=== PATIENT | male | born 1990 | race Caucasian/White ===

== ENCOUNTER 2023-12-20 19:14 | Observation (INO) | payer OTHER, SELFPAY ==
[2023-12-20] VITALS (23 sets, daily range): BP systolic 90–140; BP diastolic 0–80; PULSE 85–159; RESP 10–46; TEMP 36.3–36.7; O2SAT 93–99; BMI 50.7; BMI 51.4
--- NOTE | 2023-12-20 19:23 | ECG_ITS ---
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
--- NOTE | 2023-12-20 19:26 | ED.GENADUL1 ---
Documented by User: CALIXTO Gomez 12/20/23 22:01 HPI - General Adult General Chief complaint: Shortness of Breath/Dyspnea Stated complaint: SORE THROAT Time Seen by Provider: 12/20/23 19:16 Mode of arrival: walk-in History of Present Illness HPI narrative: Patient is a 33-year-old male who presents to the ER with concerns of persistent shortness of breath cough and sore throat. Patient states he was seen 2 weeks ago and diagnosed with influenza B, states his breathing symptoms have not improved despite Tessalon Perles, recent steroid from his family doctor finishing today and nebulizers every 6 hours. Patient notes some shortness of breath with exertion, cough somewhat productive. mild Body aches I think i am over the flu part. Pt denies abdominal pain. pt also notes poor dentition. i think I am getting tooth infection. Onset (ago): week(s) (2) Severity: moderate Quality: Reports aching Pain Consistency: Reports constant Treatments prior to arrival: Reports other (steroids and breathinig tx) Related Data Allergies Allergy/AdvReac Type Severity Reaction Status Date / Time No Known Drug Allergies Allergy Verified 12/20/23 19:24 Review of Systems ROS Constitutional Reports: fever (last week); Denies: chills Eyes Denies: change in vision Ears, nose, mouth, and throat Reports: throat pain, hoarseness and nasal congestion; Denies: neck pain, throat swelling or difficulty swallowing Cardiovascular Denies: chest pain Respiratory Reports: shortness of breath, cough and wheezing Gastrointestinal Denies: abdominal pain, nausea or vomiting Musculoskeletal Denies: back pain or neck pain Integumentary/Breast Denies: rash Neurological Denies: headache Psychiatric Denies: anxiety Exam Narrative Exam Narrative: Nurses notes and vital signs reviewed and patient is not hypoxic. General: The patient appears ill, SOB, diaphoretic on the brow Skin: Warm, dry extremities, no pallor noted.No evidence of rash Head: Normocephalic, atraumatic Neck: Supple, trachea mid-line, no tenderness, no lymphadenopathy Eye: Pupils are equal, round and reactive to light, EOMI Ears, Nose, Mouth, and Throat: TM are clear, normal light reflex, oral mucosa is moist,Poor dentition, no focal abscess but multiple broken teeth noted. Multiple dental caries. no posterior oropharynx erythema or hypertrophy, uvula is mid-line, Positive postnasal drainage noted Cardiovascular: tachycardia, no prominent murmur. no extermity edema Respiratory: Patient is in no distress, no accessory muscle use, lungs with exp wheezing, + rhonchi bases. Chest Wall: no tenderness Back: non-tender, no CVA tenderness Musculoskeletal: normal ROM, no tenderness, no swelling GI: Normal bowel sounds, no tenderness to palpation, no masses appreciated. No rebound, guarding, or rigidity noted. Neurological: A&O x4 Psychiatric: Cooperative Constitutional Vital Signs, click to edit/add: Last Vital Signs Temp 98.1 F 12/20/23 20:35 Pulse 159 H 12/20/23 21:44 Resp 28 H 12/20/23 21:44 BP 104/0 L 12/20/23 21:52 Pulse Ox 96 12/20/23 21:44 O2 Del Method Room Air 12/20/23 20:11 Course Vital Signs Vital signs: Vital Signs Temperature 98.0 F 12/20/23 19:19 Pulse Rate 142 H 12/20/23 19:19 Respiratory Rate 22 12/20/23 19:19 Blood Pressure 100/65 12/20/23 19:19 Pulse Oximetry 99 12/20/23 19:19 Oxygen Delivery Method Room Air 12/20/23 19:19 Temperature 98.1 F 12/20/23 20:35 Pulse Rate 159 H 12/20/23 21:44 Respiratory Rate 28 H 12/20/23 21:44 Blood Pressure 104/0 L 12/20/23 21:52 Pulse Oximetry 96 12/20/23 21:44 Oxygen Delivery Method Room Air 12/20/23 20:11 Medical Decision Making [facility] Narrative Medical decision making narrative: Patient presents with persistent shortness of breath, wheezing and a cough x 2 weeks, initially diagnosed with influenza B. Significantly tachycardic, IV FLUID bolus Patient's blood pressure noted to be mid 90s over Doppler, patient heart rate continues to be 150. His breathing appears improved but patient notes he still feels shortness of breath, his D-dimer test was within normal limits, patient had a second IV fluid bolus ordered, patient be given Solu-Medrol 125 mg IV and magnesium 2 g IV over 15 minutes. Patient reports a longstanding history of asthma, treated by Dr. Kilgore. Preliminary chest x-ray concerning for pneumonia and patient will be given Rocephin 1 g IV. 2 L IV fluid bolus, his heart rate was observed to fluctuate between 150 and 120, blood pressure 104 systolic over Doppler, possible atrial flutter noted on monitor. Discussed concern with no change in HR/ hypotension. Dr. Quintero at bedside with 10mg cardizem- improved rate and Atrial flutter noted on monitor. Lab Data Lab results reviewed: Yes I reviewed the patient's lab results Labs: Lab Results 12/20/23 Range/Units 19:49 WBC 10.8 (4.0-11.0) 10^3/uL RBC 4.92 (4.70-6.10) 10^6/uL Hgb 14.3 (14.0-18.0) g/dL Hct 45.5 (42.0-54.0) % MCV 92.5 (80.0-94.0) fL MCH 29.1 (25.9-34.0) pg MCHC 31.4 (29.9-35.2) g/dL RDW 13.6 (11.0-15.0) % Plt Count 283 (150-450) 10^3/uL MPV 9.2 L (9.5-13.5) fL Neut % (Auto) 54.5 (43.0-75.0) % Lymph % (Auto) 33.9 (20.5-60.0) % [place] % (Auto) 8.7 (1.7-12.0) % Eos % (Auto) 1.7 (0.9-7.0) % Baso % (Auto) 0.2 (0.2-2.0) % Neut # (Auto) 5.9 (1.4-6.5) 10^3/uL Lymph # (Auto) 3.7 (1.2-3.8) 10^3/uL [place] # (Auto) 0.9 H (0.3-0.8) 10^3/uL Eos # (Auto) 0.2 (0.0-0.7) 10^3/uL Baso # (Auto) 0.0 (0.0-0.1) 10^3/uL Abs Immat Gran (auto) 0.11 H (0.00-0.03) 10^3/uL Imm/Tot Granulo (auto) 1.0 H (0.0-0.5) % PT 9.9 (9.0-11.6) sec INR 0.93 APTT 28.2 (22.3-36.2) sec D-Dimer 0.28 (<=0.59) mg/L FEU Sodium 138 (136-145) mmol/L Potassium 4.2 (3.5-5.1) mmol/L Chloride 101 (98-107) mmol/L Carbon Dioxide 29.6 (21.0-32.0) mmol/L Anion Gap 11.6 BUN 15.0 (7.0-18.0) mg/dL Creatinine 1.06 (0.70-1.30) mg/dL Est GFR ( Amer) >60 (>=60) Est GFR (Non-Af Amer) >60 (>=60) BUN/Creatinine Ratio 14.2 Glucose 156 H (74-106) mg/dL Lactate 1.6 (0.4-2.0) mmol/L Calcium 9.1 (8.5-10.1) mg/dL Total Bilirubin 0.2 (0.2-1.0) mg/dL AST 64 H (15-37) U/L ALT 79 H (16-63) U/L Alkaline Phosphatase 99 (46-116) U/L Troponin I High Sens 7.9 (4.0-76.1) pg/mL NT-Pro-B Natriuret Pep 426.0 (<=450.0) pg/mL Total Protein 7.0 (6.4-8.2) g/dL Albumin 3.3 L (3.4-5.0) g/dL Globulin 3.7 g/dL Albumin/Globulin Ratio 0.9 Procalcitonin 0.10 (0.00-0.50) ng/mL TSH & Free T4 Interp 1.163 (0.358-3.740) uIU/mL Adenovirus (PCR) Not detected (NOT DETECTE) C. pneumoniae DNA (PCR) Not detected (NOT DETECTE) Coronavirus Type OC43 Not detected (NOT DETECTE) Coronavirus Type HKU1 Not detected (NOT DETECTE) Coronavirus Type 229E Not detected (NOT DETECTE) Coronavirus Type NL63 Not detected (NOT DETECTE) Human Metapneumovir PCR Not detected (NOT DETECTE) M. pneumoniae (PCR) Not detected (NOT DETECTE) Parainfluenza PCR Not detected (NOT DETECTE) Parainfluenza 2 (PCR) Not detected (NOT DETECTE) Parainfluenza 3 (PCR) Not detected (NOT DETECTE) Parainfluenza 4 (PCR) Not detected (NOT DETECTE) RSV (RT-PCR) Not detected (NOT DETECTE) Entero/Rhino (PCR) Not detected (NOT DETECTE) SARS-CoV-2 (PCR) Not detected (NOT DETECTE) Bordetella pertussis (PCR) Not detected (NOT DETECTE) B parapertussis DNA PCR Not detected (NOT DETECTE) Influenza Type A (PCR) Not detected (NOT DETECTE) Influenza Type B (PCR) Detected A (NOT DETECTE) Imaging Data Chest x-ray: My impression: Perihilar infiltrates suspected clinical pneumonia Radiologist's impression: ITS Impressions Chest X-Ray 12/20/23 20:20 IMPRESSION: No acute cardiopulmonary process. Electronically authenticated by: SHANICE GE Date: 12/20/2023 21:09 ECG Data Attestation: I personally reviewed and interpreted this ECG as follows: Interpretation: EKG interpretation: Emergency Department physician interpretation, tachycardia, possible Atrial flutter rapid junctional rhytm . Repeat EK:39 s/p 10mg Cardizem, 82 bpm, atrial flutter. no st elevation. Discharge Plan Discharge Chief Complaint: Shortness of Breath/Dyspnea Clinical Impression: Acute asthmatic bronchitis, New onset atrial flutter, Influenza B Patient Disposition: Admitted As Inpatient Time of Disposition Decision: 22:11 Additional Instructions: inpatient, SDU, Dr Erazo Documented by User: Mushtaq Quintero 12/20/23 22:22 HPI - General Adult General Chief complaint: Shortness of Breath/Dyspnea Stated complaint: SORE THROAT Time Seen by Provider: 12/20/23 19:16 Related Data Allergies Allergy/AdvReac Type Severity Reaction Status Date / Time No Known Drug Allergies Allergy Verified 12/20/23 19:24 Exam Constitutional Vital Signs, click to edit/add: Last Vital Signs Temp 98.1 F 12/20/23 20:35 Pulse 159 H 12/20/23 21:44 Resp 28 H 12/20/23 21:44 BP 104/0 L 12/20/23 21:52 Pulse Ox 96 12/20/23 21:44 O2 Del Method Room Air 12/20/23 20:11 Course Vital Signs Vital signs: Vital Signs Temperature 98.0 F 12/20/23 19:19 Pulse Rate 142 H 12/20/23 19:19 Respiratory Rate 22 12/20/23 19:19 Blood Pressure 100/65 12/20/23 19:19 Pulse Oximetry 99 12/20/23 19:19 Oxygen Delivery Method Room Air 12/20/23 19:19 Temperature 98.1 F 12/20/23 20:35 Pulse Rate 159 H 12/20/23 21:44 Respiratory Rate 28 H 12/20/23 21:44 Blood Pressure 104/0 L 12/20/23 21:52 Pulse Oximetry 96 12/20/23 21:44 Oxygen Delivery Method Room Air 12/20/23 20:11 Medical Decision Making [facility] Narrative Medical decision making narrative: Patient presents with persistent shortness of breath, wheezing and a cough x 2 weeks, initially diagnosed with influenza B. Significantly tachycardic, IV FLUID bolus Patient's blood pressure noted to be mid 90s over Doppler, patient heart rate continues to be 150. His breathing appears improved but patient notes he still feels shortness of breath, his D-dimer test was within normal limits, patient had a second IV fluid bolus ordered, patient be given Solu-Medrol 125 mg IV and magnesium 2 g IV over 15 minutes. Patient reports a longstanding history of asthma, treated by Dr. Kilgore. Patient presentation concerning for pneumonia and patient will be given Rocephin 1 g IV. CXR ultimately read byr adiologist as negative for acute cardiopulmonary process. 2 L IV fluid bolus given, then his heart rate was observed to fluctuate between 150 and 120, blood pressure 104 systolic over Doppler, possible atrial flutter noted on monitor. Discussed concern with no change in HR/ hypotension. Dr. Quintero at bedside with 10mg cardizem- improved rate and Atrial flutter noted on monitor. See below For this patient encounter I reviewed the mid-level provider?s documentation, medical decision-making and treatment plan, and I personally spent time with this patient. Shared APC visit, physician attestation: [id number]: This visit was performed by both a physician and an APC. I personally evaluated and examined the patient. I performed all aspects of MDM as documented. I saw and examined the patient after discussion with the physician quality assurance assistant. Please refer to his note for further details of his assessment. The patient was tachypneic with some scattered expiratory wheezing that resembled an acute asthma exacerbation or possible pneumonia. However on further evaluation he remained tachycardic in the 150s despite 2 L of normal saline IV fluid administration. I initially had concerns about the possibility of atrial flutter based on his initial EKG but his blood pressure was just below 90 systolic on arrival and therefore I want him to receive IV fluids before I attempted to give him any Cardizem. In the end, we gave him a low-dose injection of Cardizem at 10 mg IV and that reduced his heart rate from 150s to the 100-110 range. Repeat EKG revealed that this patient has atrial flutter/atrial fibrillation that is new onset. This diagnosis was explained to the patient and family. He will be admitted for evaluation of new onset atrial flutter/atrial fibrillation. As his heart rate improved his symptoms improved as well. [facility] hospital texted to discuss the case. Patient will be admitted to Dr Erazo's service, inpatient, SDU. As Kathy and I discussed the case, the patient's HR started to creep up to 110s-120s, so I decided to start the patient on a 5mg/hr IV Cardizem drip and let Kathy know that. - BETZAIDAay, DO Lab Data Labs: Lab Results 12/20/23 Range/Units 19:49 WBC 10.8 (4.0-11.0) 10^3/uL RBC 4.92 (4.70-6.10) 10^6/uL Hgb 14.3 (14.0-18.0) g/dL Hct 45.5 (42.0-54.0) % MCV 92.5 (80.0-94.0) fL MCH 29.1 (25.9-34.0) pg MCHC 31.4 (29.9-35.2) g/dL RDW 13.6 (11.0-15.0) % Plt Count 283 (150-450) 10^3/uL MPV 9.2 L (9.5-13.5) fL Neut % (Auto) 54.5 (43.0-75.0) % Lymph % (Auto) 33.9 (20.5-60.0) % [place] % (Auto) 8.7 (1.7-12.0) % Eos % (Auto) 1.7 (0.9-7.0) % Baso % (Auto) 0.2 (0.2-2.0) % Neut # (Auto) 5.9 (1.4-6.5) 10^3/uL Lymph # (Auto) 3.7 (1.2-3.8) 10^3/uL [place] # (Auto) 0.9 H (0.3-0.8) 10^3/uL Eos # (Auto) 0.2 (0.0-0.7) 10^3/uL Baso # (Auto) 0.0 (0.0-0.1) 10^3/uL Abs Immat Gran (auto) 0.11 H (0.00-0.03) 10^3/uL Imm/Tot Granulo (auto) 1.0 H (0.0-0.5) % PT 9.9 (9.0-11.6) sec INR 0.93 APTT 28.2 (22.3-36.2) sec D-Dimer 0.28 (<=0.59) mg/L FEU Sodium 138 (136-145) mmol/L Potassium 4.2 (3.5-5.1) mmol/L Chloride 101 (98-107) mmol/L Carbon Dioxide 29.6 (21.0-32.0) mmol/L Anion Gap 11.6 BUN 15.0 (7.0-18.0) mg/dL Creatinine 1.06 (0.70-1.30) mg/dL Est GFR ( Amer) >60 (>=60) Est GFR (Non-Af Amer) >60 (>=60) BUN/Creatinine Ratio 14.2 Glucose 156 H (74-106) mg/dL Lactate 1.6 (0.4-2.0) mmol/L Calcium 9.1 (8.5-10.1) mg/dL Total Bilirubin 0.2 (0.2-1.0) mg/dL AST 64 H (15-37) U/L ALT 79 H (16-63) U/L Alkaline Phosphatase 99 (46-116) U/L Troponin I High Sens 7.9 (4.0-76.1) pg/mL NT-Pro-B Natriuret Pep 426.0 (<=450.0) pg/mL Total Protein 7.0 (6.4-8.2) g/dL Albumin 3.3 L (3.4-5.0) g/dL Globulin 3.7 g/dL Albumin/Globulin Ratio 0.9 Procalcitonin 0.10 (0.00-0.50) ng/mL TSH & Free T4 Interp 1.163 (0.358-3.740) uIU/mL Adenovirus (PCR) Not detected (NOT DETECTE) C. pneumoniae DNA (PCR) Not detected (NOT DETECTE) Coronavirus Type OC43 Not detected (NOT DETECTE) Coronavirus Type HKU1 Not detected (NOT DETECTE) Coronavirus Type 229E Not detected (NOT DETECTE) Coronavirus Type NL63 Not detected (NOT DETECTE) Human Metapneumovir PCR Not detected (NOT DETECTE) M. pneumoniae (PCR) Not detected (NOT DETECTE) Parainfluenza PCR Not detected (NOT DETECTE) Parainfluenza 2 (PCR) Not detected (NOT DETECTE) Parainfluenza 3 (PCR) Not detected (NOT DETECTE) Parainfluenza 4 (PCR) Not detected (NOT DETECTE) RSV (RT-PCR) Not detected (NOT DETECTE) Entero/Rhino (PCR) Not detected (NOT DETECTE) SARS-CoV-2 (PCR) Not detected (NOT DETECTE) Bordetella pertussis (PCR) Not detected (NOT DETECTE) B parapertussis DNA PCR Not detected (NOT DETECTE) Influenza Type A (PCR) Not detected (NOT DETECTE) Influenza Type B (PCR) Detected A (NOT DETECTE) Imaging Data Chest x-ray: Radiologist's impression: ITS Impressions Chest X-Ray 12/20/23 20:20 IMPRESSION: No acute cardiopulmonary process. Electronically authenticated by: SHANICE GE Date: 12/20/2023 21:09 Critical Care Time Critical Care Time Critical Care Time: Yes Total Critical Care Time: 75 Attestation: Critical Care Time: 75 minutes, critical care time is separate from any procedures that are performed. The following was considered in the determination of critical care but not limited to the level medical decision-making, intensive cardiac and/or respiratory monitor, frequent vital sign monitoring, evaluation of laboratory studies, evaluation of a radiographic studies, oxygen monitoring and constant monitoring. Discharge Plan Discharge Chief Complaint: Shortness of Breath/Dyspnea Clinical Impression: Acute asthmatic bronchitis, New onset atrial flutter, Influenza B Patient Disposition: Admitted As Inpatient Time of Disposition Decision: 22:11 Additional Instructions: inpatient, SDU, Dr Erazo
[2023-12-20] MEDS: LEVALBUTEROL HCL 0.63 MG/3 ML VIAL.NEB 0.630000000000000004 MG IH (20:00)
[2023-12-20] MEDS: IPRATROPIUM BROMIDE 0.5 MG/2.5 ML VIAL.NEB IH (20:09)
[2023-12-20 20:12] LABS: Adenovirus NOT DETECTED (NOT DETECTE); Bordetella parapertussis NOT DETECTED (NOT DETECTE); Coronavirus 229E NOT DETECTED (NOT DETECTE); Coronavirus HKU1 NOT DETECTED (NOT DETECTE); Coronavirus NL63 NOT DETECTED (NOT DETECTE); Coronavirus OC43 NOT DETECTED (NOT DETECTE); Human Metapneumovirus NOT DETECTED (NOT DETECTE); Human Rhinovirus/Enterovirus NOT DETECTED (NOT DETECTE); Influenza A NOT DETECTED (NOT DETECTE); Mycoplasma pneumoniae NOT DETECTED (NOT DETECTE); Parainfluenza Virus 1 NOT DETECTED (NOT DETECTE); Parainfluenza Virus 2 NOT DETECTED (NOT DETECTE); Parainfluenza Virus 3 NOT DETECTED (NOT DETECTE); Parainfluenza Virus 4 NOT DETECTED (NOT DETECTE); Respiratory Syncytial Virus NOT DETECTED (NOT DETECTE); SARS-CoV-2 NOT DETECTED (NOT DETECTE)
[2023-12-20 20:17] LABS: Basophils Percent Auto 0.2 % (0.2-2.0); Eosinophils Absolute Auto 0.2 10^3/uL (0.0-0.7); Eosinophils Percent Auto 1.7 % (0.9-7.0); Hematocrit 45.5 % (42.0-54.0); Hemoglobin 14.3 g/dL (14.0-18.0); Immature Granulocytes Abs Auto 0.11 10^3/uL (0.00-0.03); Lymphocytes Absolute Auto 3.7 10^3/uL (1.2-3.8); Lymphocytes Percent Auto 33.9 % (20.5-60.0); Mean Corpuscular HGB Conc 31.4 g/dL (29.9-35.2); Mean Corpuscular Hemoglobin 29.1 pg (25.9-34.0); Mean Corpuscular Volume 92.5 fL (80.0-94.0); Mean Platelet Volume 9.2 fL (9.5-13.5); Monocytes Absolute Auto 0.9 10^3/uL (0.3-0.8); Monocytes Percent Auto 8.7 % (1.7-12.0); Neutrophils Absolute Auto 5.9 10^3/uL (1.4-6.5); Neutrophils Percent Auto 54.5 % (43.0-75.0); Platelet Count 283 10^3/uL (150-450); Red Blood Count 4.92 10^6/uL (4.70-6.10); Red Cell Distribution Width 13.6 % (11.0-15.0); White Blood Count 10.8 10^3/uL (4.0-11.0)
--- NOTE | 2023-12-20 20:20 | XR_ITS ---
[address] [address] Patient Name: YOLANDA BOLAÑOS MRN: [id number] date: 1990 Sex: M Assigned Patient Location: ER Current Patient Location: ER Accession/Order Number: [id number] Exam Date: 12/20/2023 19:31 Report Date: 12/20/2023 21:09 At the request of: STANLEY SALDAÑA Procedure: XR chest 1V EXAMINATION: XR chest 1V, , 12/20/2023 7:31 PM EDT INDICATION: SOB HISTORY: Ordering Provider Reason for Exam: SOB Technologist Note: Additional: COMPARISON: Chest x-ray of 08/18/2019. TECHNIQUE: Chest x-ray: One view. FINDINGS: No pneumothorax, pleural effusion or focal airspace consolidation. Heart is normal in size. Bony thorax is unremarkable. XR/XR chest 1V IMPRESSION: No acute cardiopulmonary process. Electronically authenticated by: SHANICE GE Date: 12/20/2023 21:09
[2023-12-20 20:27] LABS: Alanine Aminotransferase 79 U/L (16-63); Albumin Globulin Ratio 0.9; Albumin Level 3.3 g/dL (3.4-5.0); Alkaline Phosphatase 99 U/L (46-116); Anion Gap 11.6; Aspartate Amino Transferase 64 U/L (15-37); BUN Creatinine Ratio 14.2; Bilirubin Total 0.2 mg/dL (0.2-1.0); Calcium 9.1 mg/dL (8.5-10.1); Carbon Dioxide 29.6 mmol/L (21.0-32.0); Chloride 101 mmol/L (98-107); Estimated GFR (African America >60 (>=60); Estimated GFR (Non-African Ame >60 (>=60); Globulin 3.7 g/dL; Glucose 156 mg/dL (74-106); Potassium 4.2 mmol/L (3.5-5.1); Sodium 138 mmol/L (136-145)
[2023-12-20 20:29] LABS: Lactate/Lactic Acid 1.6 mmol/L (0.4-2.0); Troponin I High Sensitivity 7.9 pg/mL (4.0-76.1)
[2023-12-20 20:31] LABS: D Dimer 0.28 mg/L FEU (<=0.59); INR 0.93; Partial Thromboplastin Time 28.2 sec (22.3-36.2); Prothrombin Time 9.9 sec (9.0-11.6)
[2023-12-20 20:37] LABS: TSH W/ REFLEX FT4 1.163 uIU/mL (0.358-3.740)
[2023-12-20] MEDS: 0.9 % SODIUM CHLORIDE 1,000 ML 999 ML IV ×2 (20:39→20:51)
--- NOTE | 2023-12-20 20:57 | ECG_ITS ---
[facility] Test Date: 2023-12-20 Pat Name: YOLANDA BOLAÑOS Department: Room: - Gender: Male Haulage Boss: : 1990 Requested By: MARLEN FRANK Order Number: [id number] Reading MD: KRISTEN COX Measurements Intervals [place] Rate: 82 P: 270 NC: 158 QRS: 11 QRSD: 82 T: 32 QT: 300 QTc: 339 Interpretive Statements Atrial flutter 1470 with occasional supraventricular premature complexes 8102 Low QRS voltage in chest leads 8305 Short QTc interval 9150 abnormal ECG Electronically Signed On 12-21-2023 22:18:42 EDT by KRISTEN COX
[2023-12-20 21:08] LABS: Influenza B DETECTED (NOT DETECTE)
[2023-12-20] MEDS: CEFTRIAXONE 1,000 MG in 0.9 % SODIUM CHLORIDE 50 ML 100 MG IV (21:15)
[2023-12-20] MEDS: METHYLPREDNISOLONE SOD SUCC PF 125 MG/2 ML VIAL IVP (21:30)
--- NOTE | 2023-12-20 21:46 | PC.NURSE ---
Coarse expp wheezes throughout. Harsh moist cough
[2023-12-20] MEDS: DILTIAZEM HCL 25 MG/5 ML VIAL 10 MG IV (21:52)
[2023-12-20] MEDS: MAGNESIUM SULFATE 1 GM/2 ML VIAL 2 GM IV (22:10)
[2023-12-20] MEDS: dilTIAZem HCL 125 MG in 0.9 % SODIUM CHLORIDE 100 ML IV (23:17)
[2023-12-21] VITALS (112 sets, daily range): BP systolic 87–159; BP diastolic 54–113; PULSE 61–118; RESP 9–138; TEMP 36.4; O2SAT 91–98; BMI 51.4
[2023-12-21] MEDS: LEVALBUTEROL HCL 0.63 MG/3 ML VIAL.NEB 0.630000000000000004 MG IH ×2 (00:10→11:45)
[2023-12-21] MEDS: HYDROXYZINE HCL 25 MG TABLET PO ×2 (00:17→08:10)
[2023-12-21] MEDS: CETIRIZINE HCL 10 MG TABLET PO (00:17)
[2023-12-21] MEDS: ALBUTEROL SULFATE 2.5 MG/3 ML VIAL NEB IH (04:17)
[2023-12-21 05:29] LABS: Hemoglobin 13.5 g/dL (14.0-18.0); Mean Corpuscular HGB Conc 31.4 g/dL (29.9-35.2); Mean Corpuscular Hemoglobin 29.2 pg (25.9-34.0); Mean Corpuscular Volume 92.9 fL (80.0-94.0); Mean Platelet Volume 9.7 fL (9.5-13.5); Platelet Count 239 10^3/uL (150-450); Red Blood Count 4.63 10^6/uL (4.70-6.10); Red Cell Distribution Width 13.4 % (11.0-15.0); White Blood Count 7.9 10^3/uL (4.0-11.0)
[2023-12-21] MEDS: BUSPIRONE HCL 10 MG TABLET PO ×2 (05:33→13:39)
[2023-12-21 05:54] LABS: Lymphocytes Absolute Manual 0.55 10^3/uL (1.20-3.80); Monocytes Absolute Manual 0.15 10^3/uL (0.30-0.80); Segmented Neut Absolute Manual 7.18 10^3/uL (1.4-6.5)
[2023-12-21 06:31] LABS: Alanine Aminotransferase 73 U/L (16-63); Albumin Globulin Ratio 0.8; Alkaline Phosphatase 98 U/L (46-116); Anion Gap 13.9; Aspartate Amino Transferase 54 U/L (15-37); BUN Creatinine Ratio 17.6; Bilirubin Total 0.2 mg/dL (0.2-1.0); Calcium 8.4 mg/dL (8.5-10.1); Carbon Dioxide 25.8 mmol/L (21.0-32.0); Chloride 101 mmol/L (98-107); Estimated GFR (African America >60 (>=60); Estimated GFR (Non-African Ame >60 (>=60); Globulin 3.8 g/dL; Glucose 196 mg/dL (74-106); Potassium 4.7 mmol/L (3.5-5.1); Sodium 136 mmol/L (136-145); Total Protein 6.8 g/dL (6.4-8.2); Troponin I High Sensitivity 6.6 pg/mL (4.0-76.1)
--- NOTE | 2023-12-21 07:00 | CA_ITS ---
Patient Name: YOLANDA BOLAÑOS MR#: [id number] : 1990 Exam Date: 12/21/2023 Ordering Doctor: DAHIANA MOTA ECHOCARDIOGRAM REPORT PROCEDURE: CA ECHO W/ CON INDICATIONS: New onset a-flutter COMPARISON: None. DESCRIPTION: COMPLETE ECHOCARDIOGRAM Real-time transthoracic echocardiography with 2D, M-mode, spectral and color flow Doppler performed. QUALITY: Lumason contrast was administered due to suboptimal imaging for left ventricular opacification to improve delineation of endocardial boarders. LEFT VENTRICLE: Normal chamber size. Thickened septal wall. LV EF: Global left ventricular systolic function is normal. Calculated left ventricular ejection fraction is 59% DIASTOLIC: Normal diastolic function. ATRIAL SEPTUM: Inadequately seen. LEFT ATRIUM: Normal chamber size. RIGHT ATRIUM: Normal chamber size. RIGHT VENTRICLE: Normal chamber size. Normal right ventricular systolic function. TRICUSPID VALVE: Normal mobility and thickness. No stenosis with trivial regurgitation. Mild pulmonary hypertension. RVSP 39mmHg MITRAL VALVE: Normal mobility and thickness. No evidence of mitral valve stenosis. There is no mitral annular calcification. No mitral regurgitation. AORTIC VALVE: Grossly normal. No visible sclerosis. Normal leaflet mobility. No evidence of aortic valve stenosis. No aortic regurgitation. AORTIC ROOT: Normal diameter and appearance. PULMONIC VALVE: Grossly normal. No stenosis. No regurgitation. PERICARDIUM: Anterior free space; trivial effusion versus fat pad. IVC: Not well visualized. CONCLUSION: 1. Global left ventricular systolic function is normal; visually estimated ejection fraction is 55 to 60% 2. Normal right ventricular size and systolic function 3. Normal diastolic function 4. Mildly increased right ventricular systolic pressure; RVSP 39 mmHg 5. Valves are poorly seen; no obvious valvular abnormalities 6. Anterior free space; trivial effusion versus fat pad Adult Echocardiography Procedure Report Left Ventricle LVEDD (3.7 - 5.6 cm): 4.37 cm LVESD (2.2 - 4.0 cm): 3.08 cm LVIVS thickness (0.6 - 1.2 cm): 1.43 cm LVPW thickness (0.5 - 1.0 cm): 1.08 cm e': 0.16 m/s E - e': 6.38 LVOT Max Gradient: 3.57 mm[Hg] LVOT Area (cm2): 0.94 m/s Peak Velocity (LVOT): 0.94 m/s Mean Velocity (LVOT): 0.63 m/s LVOT Diameter 2.40 cm Left Ventricular Ejection Fraction: 59.36 % Left Atrium LA Volume Index (2D A2C): 21.73 ml/m2 Left Atrium Systolic Dimension: 3.57 cm Mitral Valve MV E to A Ratio: 1.46 Mitral Valve A-Wave Peak Velocity: 0.71 m/s Mitral Valve E-Wave Peak Velocity: 1.03 m/s Right Ventricle RV Internal Diastolic Dimension: 3.35 cm Aorta AO Root Diam: 3.20 cm Aortic Valve AoV Area (Peak Vinayak): 3.73 cm2, 3.82 cm2 AoV Area (VTI): 3.63 cm2, 3.70 cm2 Peak Velocity(Antegrade Flow): 1.12 m/s, 1.17 m/s Peak Gradient(Antegrade Flow): 5.04 mm[Hg], 5.50 mm[Hg] Mean Velocity(Antegrade Flow): 0.80 m/s, 0.82 m/s Mean Gradient(Antegrade Flow): 2.88 mm[Hg], 3.10 mm[Hg] Velocity Time Integral: 23.98 cm, 24.95 cm Tricuspid Valve Peak Velocity (Regurgitant Flow): 1.52 m/s, 1.82 m/s, 2.98 m/s Pulmonic Valve Peak Velocity: 1.45 m/s Peak Gradient: 8.04 mm[Hg], 8.87 mm[Hg] Right Atrium Right Atrium Systolic Pressure: 45.56 ml, 45.56 ml Dictated by: Ivan Saenz M.D. on 12/22/2023 at 11:39 Approved by: Ivan Saenz M.D. on 12/22/2023 at 12:01
[2023-12-21 07:53] LABS: Magnesium 2.6 mg/dL (1.8-2.4)
--- NOTE | 2023-12-21 08:04 | ECG_ITS ---
[facility] Test Date: 2023-12-21 Pat Name: YOLANDA BOLAÑOS Department: Room: [facility] [place] Gender: Male Applications Administrator: : 1990 Requested By: MARLEN FRANK Order Number: [id number] Reading MD: KRISTEN COX Measurements Intervals [place] Rate: 88 P: 35 WV: 140 QRS: 12 QRSD: 86 T: 36 QT: 360 QTc: 405 Interpretive Statements 1100 Sinus rhythm 8102 Low QRS voltage in chest leads 9120 atypical ECG Compared to ECG 12/20/2023 21:39:28 Atrial flutter no longer present Electronically Signed On 12-21-2023 22:20:21 EDT by KRISTEN COX
[2023-12-21] MEDS: VALACYCLOVIR HCL 500 MG TABLET 1000 MG PO (08:06)
[2023-12-21] MEDS: LOSARTAN POTASSIUM 50 MG TABLET 100 MG PO (08:07)
[2023-12-21] MEDS: OMEPRAZOLE 40 MG CAPSULE.DR PO (08:07)
[2023-12-21] MEDS: ATORVASTATIN CALCIUM 10 MG TABLET PO (08:07)
[2023-12-21] MEDS: METOPROLOL TARTRATE 25 MG TABLET 12.5 MG PO (08:07)
[2023-12-21] MEDS: DULOXETINE HCL 60 MG CAPSULE.DR PO (08:07)
[2023-12-21] MEDS: FENOFIBRATE 54 MG TABLET 162 MG PO (08:07)
[2023-12-21 08:17] LABS: Glucometer 155 mg/dL (74-106)
[2023-12-21] MEDS: ASENAPINE MALEATE 5 MG 5 EACH SL (09:53)
[2023-12-21] MEDS: BUDESONIDE 0.5 MG/2 ML AMPULE NEB IH (11:45)
--- NOTE | 2023-12-21 11:45 | DIETREC ---
Pt c/o hunger w/current diet order (1800 kcal CCD) and is asking for additional food. Estimated energy needs calculated at 3083-4660 kcal; recommend increase diet to 2500 kcal CCD.
--- NOTE | 2023-12-21 11:50 | CM.NOTE ---
Rounds made with Dr. Erazo, pt will discharge to home today after echo completed and cardiology consult.
--- NOTE | 2023-12-21 11:53 | P.HP_ITS ---
<Statement entered by Robin Erazo MD - 12/21/23 20:27> Patient seen and examined, agree with assessment and plan below. Presented with SOB and found atrial flutter. Admitted on cardizem and converted back to NSR. Recent influenza and increased use of albuterol. Case discussed with cardiology and gave recommendations. Discharge home. Diagnosis: 1. Atrial flutter 2. Asthma exacerbation 3. Influenza B 4. DM2 5. HTN 6. Morbid obesity HPI H&P: HPI History of Present Illness Chief complaint: SORE THROAT Narrative: 12/21/23 0115 This is a 33-year-old male patient with a past medical history as outlined below including schizophrenia, DM2, asthma, and morbid obesity; who presented to the ED yesterday complaining of persistent shortness of breath. He was diagnosed with influenza B 2 weeks ago, but was diagnosed too late to take Tamiflu. He wa s prescribed a steroid as he was experiencing an asthma exacerbation. The patient reports that he felt like he was recovering from his influenza but then became more short of breath again especially with activity. His spouse at the bedside notes that he was taking his albuterol as frequently as every 2 hours for his shortness of breath with influenza. Workup in the ED revealed tachycardia with heart rates above 150 up to 200 at times with a-fib/flutter suspected on EKG. Chest x-ray was unremarkable. Labs revealed persistent influenza B Inspection: But were otherwise unremarkable except for hyperglycemia. He was admitted to the hospitalist service last night on a Cardizem drip. He was in sinus rhythm when the Cardizem drip was initiated, but apparently was still having bursts of tachycardia. At the time of my exam the patient's heart rate is well-controlled and he has been converted from a Cardizem drip to low-dose p.o. Lopressor. He is in sinus rhythm and he feels at his baseline at the time of my exam. He does have mild end expiratory wheezing that persists but he does not feel subjectively worse than his baseline. His [id number] score is 1 indicating anticoagulation is not necessary at this time. We have consulted cardiology and they recommend low dose daily aspirin and follow up as an outpatient. A 2D echo has also been obtained with a preserved LVEF of 59% on prelim reading, but final cardiology interpretation is still pending. Disposition: As the patient is significantly improved and at or near his baseline respiratory status, he is being discharged home in stable condition. He has been prescribed Lopressor 12.5 mg twice daily for heart rate control. He should follow-up with cardiology as scheduled. We have prescribed levalbuterol for breathing treatments to reduce cardiac stimulation and advised the patient to take it no more often than every 6 hours if possible. Of note: he has been using his grandmothers nebulizer machine because he has lost his personal nebulizer. He should have access to a nebulizer at all times d/t the chronicity of his asthma symptoms. food and nutrition services assistant with explore if his insurance will allow him to get another nebulizer. Opioid HPI Opioid Management Most Recent Opioid Data: Last Pain Assessment 12/21/23 13:00 Last ORT Total Score 4 12/20/23 23:58 Last ORT Risk Category Moderate Risk 12/20/23 23:58 Review of Systems ROS Status of ROS 10 or more systems reviewed and unremark able except as noted in history and below [facility] Medical History (Updated 12/21/23 @ 12:13 by Elise Crespo NP) Schizophrenia ?F20.9 - Schizophrenia, unspecified (ICD-10) Bipolar disorder ?F31.9 - Bipolar disorder, unspecified (ICD-10) Morbid obesity due to excess calories ?E66.01 - Morbid (severe) obesity due to excess calories (ICD-10) Benign essential hypertension ?I10 - Essential (primary) hypertension (ICD-10) Type 2 diabetes mellitus with hyperglycemia ?E11.65 - Type 2 diabetes mellitus with hyperglycemia (ICD-10) Acute asthmatic bronchitis ?J45.909 - Unspecified asthma, uncomplicated (ICD-10) Psychiatric disorder ?F99 - Mental disorder, not otherwise specified (ICD-10) Hyperlipemia ?E78.5 - Hyperlipidemia, unspecified (ICD-10) Asthma ?J45.909 - Unspecified asthma, uncomplicated (ICD-10) Diabetes ?E11.9 - Type 2 diabetes mellitus without complications (ICD-10) Family History (Updated 12/20/23 @ 23:51 by Kendra Roberson) Mother Family history of COPD (chronic obstructive pulmonary disease) Social History (Updated 12/21/23 @ 00:47 by Kendra Roberson) Within the past year, how often did you have a drink containing alcohol: never Score interpretation: A score less than 4 is consistent with normal alcohol consumption. Non-prescribed substance use: former substance user Highest level of school completed/degree received: some college, no degree Meds Home Medications and Allergies Home Medications Medication Instructions Recorded Confirmed Type asenapine maleate 5 mg sublingual 5 mg sublingual BID 12/20/23 12/20/23 History tablet (Saphris) atorvastatin 10 mg tablet 10 mg PO DAILY 12/20/23 12/20/23 History buspirone 10 mg tablet 10 mg PO TID 12/20/23 12/20/23 History duloxetine 60 mg capsule,delayed 60 mg PO DAILY 12/20/23 12/20/23 History release empagliflozin 25 mg tablet 25 mg PO DAILY 12/20/23 12/20/23 History (Jardiance) fenofibrate nanocrystallized 145 145 mg PO DAILY 12/20/23 12/20/23 History mg tablet fluticasone propionate 45 2 inh inhalation Q12H 12/20/23 12/20/23 History mcg-salmeterol 21 mcg/actuation HFA inhaler (Advair HFA) hydroxyzine HCl 25 mg tablet 25 mg PO Q8H 12/20/23 12/20/23 History loratadine 10 mg tablet 10 mg PO Q24H 12/20/23 12/20/23 History losartan 100 mg tablet 100 mg PO DAILY 12/20/23 12/20/23 History lurasidone 120 mg tablet 120 mg PO DAILY 12/20/23 12/20/23 History metformin 500 mg tablet 1,000 mg PO BID 12/20/23 12/20/23 History pantoprazole 40 mg tablet,delayed 40 mg PO DAILY 12/20/23 12/20/23 History release trazodone 100 mg tablet 100 mg PO DAILY 12/20/23 12/20/23 History valacyclovir 1 gram tablet 1,000 mg PO DAILY 12/20/23 12/20/23 History aspirin 81 mg capsule 81 mg PO DAILY #30 caps 12/21/23 Rx levalbuterol HCl 1.25 mg/3 mL 1.25 mg (3 mL) inhalation Q6H PRN 12/21/23 Rx solution for nebulization shortness of breath or wheezing #90 mL levalbuterol tartrate 45 2 inh inhalation Q6H PRN shortness 12/21/23 Rx mcg/actuation aerosol inhaler of breath or wheezing #15 grams metoprolol tartrate 25 mg tablet 12.5 mg (1/2 x 25 mg) PO BID #30 12/21/23 Rx tabs prednisone 10 mg tablet See Rx Instructions .Route 12/21/23 Rx .COMPLEX 12 days #42 tabs Allergies Allergy/AdvReac Type Severity Reaction Status Date / Time No Known Drug Allergies Allergy Verified 12/20/23 19:24 Exam Constitutional Vital Signs, click to edit/add: Last Vital Signs Temp 97.5 F L 12/21/23 07:31 Pulse 81 12/21/23 11:45 Resp 20 12/21/23 11:45 BP 136/88 12/21/23 08:16 Pulse Ox 94 L 12/21/23 11:45 O2 Del Method Room Air 12/21/23 00:00 Common normals: no apparent distress, oriented x3, alert and well nourished General appearance: cooperative Orientation/consciousness: Yes awake HENMT Common normals: normocephalic, head/scalp atraumatic, hearing grossly normal bilaterally, external nose normal and moist oral mucous membranes Eye Common normals: PERRL, EOMs intact bilaterally, conjunctivae normal and no scleral icterus Alignment: alignment normal Eyelid: eyelids normal Neck & C-Spine Common normals: full ROM, supple and no JVD Chest Common normals: inspection of chest normal Chest: symmetrical chest wall rise Respiratory Common normals: normal respiratory effort, no retractions and no use of accessory muscles Effort & inspection: able to speak in complete sentences Auscultation: wheezes (scattered, faint EE throughout) Cardio Common normals: no JVD, regular rate, regular rhythm, S1 normal heart sound, S2 normal heart sound, no gallops, no clicks, no murmurs, no rub and peripheral pulses 2+ throughout GI Common normals: Normal to inspection, nondistended, normoactive bowel sounds present, soft to palpation, non-tender, no hepatosplenomegaly, no masses and no bruits Bladder/kidney exam: bladder normal to palpation Back & Pelvis Common normals: thoracic and lumbar spine normal to inspection Extremity Common normals: normal capillary refill General: normal exam except as noted and edema (Tr bilat insteps/ankles); no clubbing and no cyanosis Neuro Mis Coma Scale: GCS not evaluated Common normals: CN's II-XII intact bilaterally, moves all extremities, no focal motor deficits and no sensory deficits noted Speech: speech normal Motor exam: strength 5/5 throughout Psych Common normals: mental status grossly normal, thought process normal, affect normal and activity/motor behavior normal Results Labs Labs: Short CBC 12/20/23 12/21/23 Range/Units 19:49 04:06 WBC 10.8 7.9 (4.0-11.0) 10^3/uL Hgb 14.3 13.5 L (14.0-18.0) g/dL Hct 45.5 43.0 (42.0-54.0) % Plt Count 283 239 (150-450) 10^3/uL BMP 12/20/23 12/21/23 19:49 04:06 Sodium 138 136 Potassium 4.2 4.7 Chloride 101 101 Carbon Dioxide 29.6 25.8 BUN 15.0 18.0 Creatinine 1.06 1.02 Glucose 156 H 196 H Calcium 9.1 8.4 L Liver Function 12/20/23 12/21/23 Range/Units 19:49 04:06 Total Bilirubin 0.2 0.2 (0.2-1.0) mg/dL AST 64 H 54 H (15-37) U/L ALT 79 H 73 H (16-63) U/L Alkaline Phosphatase 99 98 (46-116) U/L Albumin 3.3 L 3.0 L (3.4-5.0) g/dL Pulse Oximetry Attestation: I have reviewed the pertinent pulse oximetry results. ECG Interpretation: EKG #1 Rapid junctional rhythm Moderate ST depression Abnormal ECG Compared to ECG from 12/17/2021 Junctional rhythm now present ST (T wave) deviation now present Sinus tachycardia no longer present EKG #2 Rapid junctional rhythm Junctional ST depression, probably normal Nonspecific ST and T wave abnormality Abnormal rhythm ECG Compared to ECG from 12/17/2021 Junctional rhythm not present ST (T wave) deviation now present Sinus tachycardia no longer present EKG #3 Rapid atrial rhythm With occasional supraventricular premature complexes Low QRS voltage in chest leads Short QTc interval Abnormal ECG Compared to ECG from 12/20/2023 Low QRS voltage now present Junctional rhythm no longer present ST (T wave) deviation no longer present Imaging Chest x-ray: Attestation: I have reviewed the pertinent imaging results. Radiologist's impression: IMPRESSION: No acute cardiopulmonary process. Assessment and Plan Assessment and Plan (1) New onset atrial flutter: Assessment and Plan: Acute * Adm observation * Likely 2/2 acute respiratory disease (Inf B/asthma exacerbation) and/or albuterol overuse * Initially on Cardizem gtt, but now on PO lopressor 12.5 BID * Converted to SR and rate is well controlled * Cardiology consult - we appreciate their assistance with this pt's care * [id number] score is 1 - recommend 81 mg daily aspirin * follow up outpatient * 2D Echo obtained - Prelim LVEF of 59%. Final cardiology interpretation is lani hurst * D/C home on Lopressor 12.5 BID unless cardiology plans otherwise * Convert albuterol breathing treatments to levalbuterol to avoid cardiac stimulation (2) Mild persistent asthma with acute exacerbation: Assessment and Plan: Acute * 2/2 to acute influenza B infection - improving * Completed steroid burst but wheezing and SOB w/ activity persist * Plan long steroid taper at discharge * Levalbuterol nebs/HFA at discharge * Follow up with Dr Kilgore as previously scheduled (3) Influenza B: Assessment and Plan: Acute * Dx 10-14 days ago * Tamiflu not indicated at this point (4) Type 2 diabetes mellitus with hyperglycemia: Assessment and Plan: Chronic * Continue home Jardiance and metformin * ACHS glucometer checks * Med SSI for glucose correction (5) Benign essential hypertension: Assessment and Plan: Chronic * Continue home losartan, with new BB for rate control (6) Hyperlipemia: Assessment and Plan: Chronic * Continue home statin (7) Psychiatric disorder: Assessment and Plan: Chronic * Bipolar and Schizophrenia dx * Continue home hydroxyzine, Saphris, Lurasidone, Trazodone
[2023-12-21] MEDS: SULFUR HEXAFLUORIDE MICROSPHR 25 MG (5ML VIAL) IV (12:04)
[2023-12-21] MEDS: INSULIN ASPART 300 UNIT/3 ML PEN SUBQ (12:04)
--- NOTE | 2023-12-21 13:47 | SWNOTE1 ---
SW received message from case management and pt used to have home nebulizer but he lost it. SW to see if we can get him a new one. SW spoke with pt and he is not sure which company. His will be back soon and will know.
--- NOTE | 2023-12-21 14:51 | SWNOTE1 ---
Pt was discharged. ELLE called and spoke with pt and while they were driving home. ELLE asked if they would like SW to look in to a new nebulizer since he lost his. Pt's voiced she called the [employer] store and he can only get 1 thing every 5 years through his insurance. SW to call and check. It is [employer] out of [place]. ELLE called and spoke to [employer], they can see he was prescribed one in October of 2021. ELLE explained that pt lost his and he needs to have one with him at all times. She stated SW can fax over the script and documentation and they will try to run it though insurance again. If insurance does not pay, they will attempt to do a one time warranty. They provided SW with fax number. ELLE faxed script, face sheet, and H&P to [employer]. ELLE called and updated pt and .
--- NOTE | 2023-12-22 14:58 | CM.DCFOLLOWU ---
Person spoke with: patient and How are you feeling? not much better, some chest pain How is your pain? chest pain continuing Did you understand your discharge instructions? yes Do you have any questions about your discharge instructions? no Were you given any prescriptions at discharge? yes Were you able to get your prescriptions filled? some of them, still waiting on asprin and the nebulizer medication Do you understand how to take your medications as ordered? yes Do you have any questions about your follow up appointment and do you plan to keep your follow up appointment? no questions, follow up with cardiology on Thursday (12/25/23) Is there anything else that you would like to discuss? no Questions/Comments/Concerns/Other: Voiced appreciation for everyone at hospital. Advised pt and pt's that if chest pain continues to bring pt to Emergency Dept.
== END 2023-12-21 14:20 | disposition home or self-care (01) ==
LOC: ER 22:13 → ICU 12-21 06:39
PROVIDERS: Nurse Practitioner; Personal Emergency Response Attendant; Registered Nurse; Admitting Provider Family Medicine; Emergency Provider Emergency Medicine; PCP Nurse Practitioner; Visit Provider Family Medicine
DX: I48.92 Unspecified atrial flutter (principal); J45.901 Unspecified asthma with (acute) exacerbation; J10.1 Influenza due to other identified influenza virus with other respiratory manifestations; E11.65 Type 2 diabetes mellitus with hyperglycemia; I10 Essential (primary) hypertension; E78.5 Hyperlipidemia, unspecified; F20.9 Schizophrenia, unspecified; F31.9 Bipolar disorder, unspecified; E66.01 Morbid (severe) obesity due to excess calories; Z68.43 Body mass index [BMI] 50.0-59.9, adult; Z20.822 Contact with and (suspected) exposure to COVID-19; Z79.899 Other long term (current) drug therapy
CPT/HCPCS: 0202U; 36415; 71045; 80053; 82948; 83605; 83735; 83880; 84145; 84443; 84484; 85007; 85025; 85027; 85378; 85610; 85730; 87040; 93005; 94640; 96365; 96366; 96367; 96375; 96376; 99285; C8929; G0378; J2930; Q9950

== ENCOUNTER 2024-01-19 11:52 | Emergency (ER) | payer OTHER, SELFPAY ==
[2024-01-19] VITALS (58 sets, daily range): BP systolic 111–148; BP diastolic 72–94; PULSE 70–91; TEMP 36.6–36.7; O2SAT 93–99; BMI 52.8
--- NOTE | 2024-01-19 12:23 | ED.GIBLEED1 ---
HPI - GI Bleed General Chief complaint: GI Bleed Stated complaint: BLOOD IN STOOL Time Seen by Provider: 01/19/24 11:58 Source: patient Mode of arrival: walk-in Limitations: no limitations History of Present Illness HPI Narrative: 33-year-old male presents for rectal bleeding. He passed a large amount of blood in the toilet today and has never had that happen to him previously. He is on Eliquis because of atrial fibrillation. He has some mild abdominal cramping but no severe pain. Related Data Home Medications ?Medication ?Instructions ?Recorded ?Confirmed asenapine maleate 5 mg sublingual 5 mg sublingual BID 12/20/23 01/19/24 tablet (Saphris) atorvastatin 10 mg tablet 10 mg PO DAILY 12/20/23 01/19/24 buspirone 10 mg tablet 10 mg PO TID 12/20/23 01/19/24 duloxetine 60 mg capsule,delayed 60 mg PO DAILY 12/20/23 01/19/24 release empagliflozin 25 mg tablet 25 mg PO DAILY 12/20/23 01/19/24 (Jardiance) fenofibrate nanocrystallized 145 145 mg PO DAILY 12/20/23 01/19/24 mg tablet fluticasone propionate 45 2 inh inhalation Q12H 12/20/23 01/19/24 mcg-salmeterol 21 mcg/actuation HFA inhaler (Advair HFA) hydroxyzine HCl 25 mg tablet 25 mg PO Q8H 12/20/23 01/19/24 loratadine 10 mg tablet 10 mg PO Q24H 12/20/23 01/19/24 losartan 100 mg tablet 100 mg PO DAILY 12/20/23 01/19/24 lurasidone 120 mg tablet 120 mg PO DAILY 12/20/23 01/19/24 metformin 500 mg tablet 1,000 mg PO BID 12/20/23 01/19/24 pantoprazole 40 mg tablet,delayed 40 mg PO DAILY 12/20/23 01/19/24 release trazodone 100 mg tablet 100 mg PO DAILY 12/20/23 01/19/24 valacyclovir 1 gram tablet 1,000 mg PO DAILY 12/20/23 01/19/24 apixaban 5 mg tablet (Eliquis) 5 mg PO Q12H 01/19/24 01/19/24 losartan 50 mg tablet 50 mg PO DAILY 01/19/24 01/19/24 metoprolol tartrate 100 mg tablet 100 mg PO Q12H 01/19/24 01/19/24 ondansetron 4 mg disintegrating 4 mg translingual Q8H PRN nausea 01/19/24 01/19/24 tablet and vomiting pregabalin 200 mg capsule 200 mg PO Q12H 01/19/24 01/19/24 Previous Rx's ?Medication ?Instructions ?Recorded aspirin 81 mg capsule 81 mg PO DAILY #30 caps 12/21/23 levalbuterol HCl 1.25 mg/3 mL 1.25 mg (3 mL) inhalation Q6H PRN 12/21/23 solution for nebulization shortness of breath or wheezing #90 mL levalbuterol tartrate 45 2 inh inhalation Q6H PRN shortness 12/21/23 mcg/actuation aerosol inhaler of breath or wheezing #15 grams metoprolol tartrate 25 mg tablet 12.5 mg (1/2 x 25 mg) PO BID #30 12/21/23 tabs Allergies Allergy/AdvReac Type Severity Reaction Status Date / Time albuterol Allergy Severe Uncoded 01/19/24 12:03 Review of Systems ROS Narrative A ten point review of systems is negative except as noted above. [facility] Medical History (Updated 01/19/24 @ 13:58 by Preston Lopez MD) Schizophrenia ?F20.9 - Schizophrenia, unspecified (ICD-10) Bipolar disorder ?F31.9 - Bipolar disorder, unspecified (ICD-10) Morbid obesity due to excess calories ?E66.01 - Morbid (severe) obesity due to excess calories (ICD-10) Benign essential hypertension ?I10 - Essential (primary) hypertension (ICD-10) Type 2 diabetes mellitus with hyperglycemia ?E11.65 - Type 2 diabetes mellitus with hyperglycemia (ICD-10) Acute asthmatic bronchitis ?J45.909 - Unspecified asthma, uncomplicated (ICD-10) Psychiatric disorder ?F99 - Mental disorder, not otherwise specified (ICD-10) Hyperlipemia ?E78.5 - Hyperlipidemia, unspecified (ICD-10) Asthma ?J45.909 - Unspecified asthma, uncomplicated (ICD-10) Diabetes ?E11.9 - Type 2 diabetes mellitus without complications (ICD-10) Family History (Updated 12/20/23 @ 23:51 by Kendra Roberson) Mother Family history of COPD (chronic obstructive pulmonary disease) Social History (Updated 12/21/23 @ 00:47 by Kendra Roberson) Within the past year, how often did you have a drink containing alcohol: never Score interpretation: A score less than 4 is consistent with normal alcohol consumption. Non-prescribed substance use: former substance user Highest level of school completed/degree received: some college, no degree Exam Narrative Exam Narrative: Nurses note and vital signs reviewed and patient is not hypoxic. General: The patient appears well and in no apparent distress. Patient is resting comfortably on cart. Skin: Warm, dry, no pallor noted. There is no rash noted. Head: Normocephalic, atraumatic Eye: Normal conjunctiva, no drainage Ears, Nose, Mouth, and Throat: oral mucosa is moist. Nares patent. Cardiovascular: Regular Rate and Rhythm, not tachycardic Respiratory: Patient is in no distress, no accessory muscle use, lungs are clear to auscultation, no wheezing, rales or rhonchi Back: non-tender GI: Obese soft and not apparently tender Musculoskeletal: The patient has no evidence of calf tenderness, no pitting edema, symmetrical pulses noted bilaterally Neurological: A&O, normal speech Psychiatric: Cooperative Constitutional Vital Signs, click to edit/add: Last Vital Signs Temp 98.0 F 01/19/24 11:56 Pulse 81 01/19/24 16:20 Resp 14 01/19/24 16:20 BP 140/82 01/19/24 14:20 Pulse Ox 98 01/19/24 14:50 O2 Del Method Room Air 01/19/24 11:56 Course Vital Signs Vital signs: Vital Signs Temperature 98.0 F 01/19/24 11:56 Pulse Rate 82 01/19/24 11:56 Respiratory Rate 18 01/19/24 11:56 Blood Pressure 111/82 01/19/24 11:56 Pulse Oximetry 99 01/19/24 11:56 Oxygen Delivery Method Room Air 01/19/24 11:56 Temperature 98.0 F 01/19/24 11:56 Pulse Rate 81 01/19/24 16:20 Respiratory Rate 14 01/19/24 16:20 Blood Pressure 140/82 01/19/24 14:20 Pulse Oximetry 98 01/19/24 14:50 Oxygen Delivery Method Room Air 01/19/24 11:56 MDM - GI Bleed MDM Narrative Medical decision making narrative: The patient's real estate inspector had told him earlier today to go to [facility] to be evaluated and admitted for this issue. He came here. I have spoken to our general surgeon who is suggest that the patient be transferred to [facility]. The case referred to [facility] and at the time of this dictation we are awaiting a callback from their admitting physician. He has been hemodynamically stable and was given IV Protonix. He reports that he had taken some Motrin over the past few days because of a tooth ache. He is stable and agreeable for transfer. Differential Diagnosis Differential diagnosis: Likely Upper gastrointestinal hemorrhage and Lower gastrointestinal hemorrhage Lab Data Attestation: I reviewed the patient's lab results. Labs: Lab Results 01/19/24 01/19/24 Range/Units 12:30 12:36 WBC 10.4 (4.0-11.0) 10^3/uL RBC 4.75 (4.70-6.10) 10^6/uL Hgb 13.6 L (14.0-18.0) g/dL Hct 43.7 (42.0-54.0) % MCV 92.0 (80.0-94.0) fL MCH 28.6 (25.9-34.0) pg MCHC 31.1 (29.9-35.2) g/dL RDW 13.3 (11.0-15.0) % Plt Count 287 (150-450) 10^3/uL MPV 9.3 L (9.5-13.5) fL Neut % (Auto) 60.4 (43.0-75.0) % Lymph % (Auto) 27.3 (20.5-60.0) % Duc[place]ne % (Auto) 8.4 (1.7-12.0) % Eos % (Auto) 2.3 (0.9-7.0) % Baso % (Auto) 0.7 (0.2-2.0) % Neut # (Auto) 6.3 (1.4-6.5) 10^3/uL Lymph # (Auto) 2.8 (1.2-3.8) 10^3/uL Duc[place]ne # (Auto) 0.9 H (0.3-0.8) 10^3/uL Eos # (Auto) 0.2 (0.0-0.7) 10^3/uL Baso # (Auto) 0.1 (0.0-0.1) 10^3/uL Abs Immat Gran (auto) 0.09 H (0.00-0.03) 10^3/uL Imm/Tot Granulo (auto) 0.9 H (0.0-0.5) % Sodium 142 (136-145) mmol/L Potassium 4.7 (3.5-5.1) mmol/L Chloride 103 (98-107) mmol/L Carbon Dioxide 28.2 (21.0-32.0) mmol/L Anion Gap 15.5 BUN 11.0 (7.0-18.0) mg/dL Creatinine 0.96 (0.70-1.30) mg/dL Est GFR ( Amer) >60 (>=60) Est GFR (Non-Af Amer) >60 (>=60) BUN/Creatinine Ratio 11.5 Glucose 150 H (74-106) mg/dL Calcium 9.2 (8.5-10.1) mg/dL Stool Occult Blood Positive A ECG Data Attestation: I personally reviewed and interpreted this ECG as follows: (EKG on my interpretation shows sinus rhythm with a rate of 73.) Discharge Plan Discharge Chief Complaint: GI Bleed Clinical Impression: GI bleed Patient Disposition: [facility] Time of Disposition Decision: 13:58 Discharge Location: [facility] Condition: Good Mode of Transportation: EMS
[2024-01-19] MEDS: 0.9 % SODIUM CHLORIDE 1,000 ML 100 ML IV (12:42)
[2024-01-19 12:44] LABS: Basophils Absolute Auto 0.1 10^3/uL (0.0-0.1); Basophils Percent Auto 0.7 % (0.2-2.0); Eosinophils Absolute Auto 0.2 10^3/uL (0.0-0.7); Eosinophils Percent Auto 2.3 % (0.9-7.0); Hematocrit 43.7 % (42.0-54.0); Hemoglobin 13.6 g/dL (14.0-18.0); Immature Granulocytes Abs Auto 0.09 10^3/uL (0.00-0.03); Immature Granulocytes Pct Auto 0.9 % (0.0-0.5); Lymphocytes Absolute Auto 2.8 10^3/uL (1.2-3.8); Lymphocytes Percent Auto 27.3 % (20.5-60.0); Mean Corpuscular HGB Conc 31.1 g/dL (29.9-35.2); Mean Corpuscular Hemoglobin 28.6 pg (25.9-34.0); Mean Platelet Volume 9.3 fL (9.5-13.5); Monocytes Absolute Auto 0.9 10^3/uL (0.3-0.8); Monocytes Percent Auto 8.4 % (1.7-12.0); Neutrophils Absolute Auto 6.3 10^3/uL (1.4-6.5); Neutrophils Percent Auto 60.4 % (43.0-75.0); Platelet Count 287 10^3/uL (150-450); Red Blood Count 4.75 10^6/uL (4.70-6.10); Red Cell Distribution Width 13.3 % (11.0-15.0); White Blood Count 10.4 10^3/uL (4.0-11.0)
[2024-01-19 13:00] LABS: Anion Gap 15.5; BUN Creatinine Ratio 11.5; Calcium 9.2 mg/dL (8.5-10.1); Carbon Dioxide 28.2 mmol/L (21.0-32.0); Chloride 103 mmol/L (98-107); Estimated GFR (African America >60 (>=60); Estimated GFR (Non-African Ame >60 (>=60); Glucose 150 mg/dL (74-106); Potassium 4.7 mmol/L (3.5-5.1); Sodium 142 mmol/L (136-145)
--- NOTE | 2024-01-19 13:06 | CT_ITS ---
The [address] [address] Patient Name: YOLANDA BOLAÑOS MRN: [id number] date: 1990 Sex: M Assigned Patient Location: ER Current Patient Location: ER Accession/Order Number: [id number] Exam Date: 01/19/2024 12:58 Report Date: 01/19/2024 13:37 At the request of: SAMMIE DUFFY Procedure: CT abdomen pelvis w con EXAM: CT abdomen pelvis w con HISTORY: GI bleed, on Eliquis COMPARISON: CT abdomen pelvis 06/07/2008. TECHNIQUE: Following intravenous administration of 100 cc of Omnipaque 300, axial soft tissue windows of the abdomen and pelvis were performed with coronal and sagittal reformats. CT dose reduction technique was used including Automated Exposure Control. Findings: ABDOMEN: There is fatty infiltration of the liver. The gallbladder, spleen, pancreas, adrenal glands and kidneys are unremarkable. The bilateral ureters are nondilated. Evaluation of the bowel is limited given the absence of oral contrast. No bowel obstruction. The appendix is nondilated. The aorta is normal caliber. No enlarged abdominal lymph nodes or free abdominal fluid. Tiny fat-containing umbilicus hernia. Pelvis: Unremarkable bladder. The prostate is nonenlarged. No enlarged pelvic lymph nodes or free pelvic fluid. There are prominent, yet not technically enlarged iliac and inguinal nodes. No aggressive sclerotic or lytic osseous lesions. CT/CT abdomen pelvis w con IMPRESSION: 1. No acute abdominal or pelvic abnormality. 2. Fatty liver. Electronically authenticated by: EDUARDA VARGHESE Date: 01/19/2024 13:37
[2024-01-19 13:21] LABS: Occult Blood Positive
--- NOTE | 2024-01-19 13:43 | ECG_ITS ---
[facility] Test Date: 2024-01-19 Pat Name: YOLANDA BOLAÑOS Department: Room: - Gender: Male Emt/Dispatcher: : 1990 Requested By: MARLEN FRANK Order Number: [id number] Reading MD: KRISTEN COX Measurements Intervals [place] Rate: 73 P: 22 TX: 136 QRS: 7 QRSD: 88 T: 7 QT: 378 QTc: 403 Interpretive Statements 1100 Sinus rhythm 8102 Low QRS voltage in chest leads 9120 atypical ECG Compared to ECG 12/21/2023 08:17:16 No significant changes Electronically Signed On 01-19-2024 23:12:29 EDT by KRISTEN COX
[2024-01-19] MEDS: PANTOPRAZOLE SODIUM 40 MG VIAL IV (14:15)
[2024-01-19] MEDS: MORPHINE SULFATE 4 MG/ML VIAL IV ×2 (16:17→21:43)
[2024-01-19] MEDS: HYDROXYZINE PAMOATE 25 MG CAPSULE PO (19:38)
[2024-01-19] MEDS: BUSPIRONE HCL 10 MG TABLET PO (19:39)
[2024-01-19] MEDS: CEFTRIAXONE 1,000 MG in 0.9 % SODIUM CHLORIDE 50 ML 100 MG IV (21:01)
== END 2024-01-19 23:58 | disposition left against medical advice (07) ==
PROVIDERS: Emergency Medicine; Emergency Provider Internal Medicine; PCP Nurse Practitioner
DX: K92.2 Gastrointestinal hemorrhage, unspecified (principal); I48.91 Unspecified atrial fibrillation; F20.9 Schizophrenia, unspecified; F31.9 Bipolar disorder, unspecified; E66.01 Morbid (severe) obesity due to excess calories; E11.9 Type 2 diabetes mellitus without complications; E78.5 Hyperlipidemia, unspecified; J45.909 Unspecified asthma, uncomplicated; Z79.899 Other long term (current) drug therapy; Z79.84 Long term (current) use of oral hypoglycemic drugs; Z79.01 Long term (current) use of anticoagulants; Z68.43 Body mass index [BMI] 50.0-59.9, adult
CPT/HCPCS: 36415; 74177; 80048; 85025; 87045; 87046; 87427; 93005; 96365; 96375; 96376; 99285; G0328; Q9967